=== PATIENT | female | born 1985 | race Caucasian/White ===

== ENCOUNTER 2017-10-25 15:44 | Emergency (ER) | payer BC ==
[2017-10-25 16:03] VITALS: BP 102/67
--- NOTE | 2017-10-25 16:44 | UC ---
Luigi Leija Natalie, scribed for Colin Horner MD on 10/25/17 at 1621 . Respiratory Complaint HPI - HPI Summary HPI Summary: The patient is a 32 y/o F presenting to [facility] c/o possible sinus infection for the last week with symptoms of sinus pressure, runny nose, and post nasal drip. The pain is rated 5/10 in severity. Patient additionally c/o chills and teeth starting to hurt today. She denies fevers. She is leaving town tomorrow and is worried about flying with an infection. PMHx of allergic rhinitis for which she takes multiple medications for. - History of Current Complaint Chief Complaint: UCRespiratory Stated Complaint: SINUS COMPLAINT Time Seen by Provider: 10/25/17 16:07 Hx Obtained From: Patient Hx Last Menstrual Period: 10 days ago Onset/Duration: Gradual Onset, Lasting Days - starting 1 week ago, Still Present Severity Initially: Moderate Severity Currently: Moderate Pain Intensity: 5 Pain Scale Used: 0-10 Numeric Associated Signs And Symptoms: Positive: Sinus Discomfort - Allergies/Home Medications Allergies/Adverse Reactions: Allergies Allergy/AdvReac Type Severity Reaction Status Date / Time acetaminophen [From Vicodin] Allergy Tachycardia Verified 10/25/17 16:03 azithromycin [From Zithromax] Allergy Rash Verified 10/25/17 16:03 hydrocodone [From Vicodin] Allergy Tachycardia Verified 10/25/17 16:03 Penicillins Allergy Rash Verified 10/25/17 16:03 Home Medications: Home Medications Albuterol HFA INHALER* [Ventolin HFA Inhaler*] 1 puff INH Q4H PRN 10/25/17 [ History Confirmed 10/25/17] Beclomethasone Dipropionate [Qnasl] 80 mcg NA 10/25/17 [History] Fluticasone/Vilanterol MDI(NF) [Breo Ellipta MDI 100/25(NF)] 1 puff INH DAILY [History Confirmed 10/25/17] LevoCETirizine TAB (NF) [Xyzal TAB (NF)] 5 mg PO DAILY 10/25/17 [History Confirmed 10/25/17] PMH/Surg Hx/FS Hx/Imm Hx Cardiovascular History: Other - NEGATIVE: hypertension Other Cardiovascular History: negative for HTN Respiratory History: Other - allergic rhinitis Other Respiratory History: allergic rhinitis - Surgical History Surgical History: Yes Surgery Procedure, Year, and Place: SINUS 1998 - sinus cyst removal. wisdom teeth removed x4 - Family History Known Family History: Negative: Hypertension - Social History Alcohol Use: Weekly Substance Use Type: None Smoking Status (MU): Never Smoked Tobacco Review of Systems Constitutional: Chills, Other - NEGATIVE: fevers ENT: Dental Pain - tooth ache, Nasal Discharge - runny nose, post nasal drip, Sinus Pain/Tenderness - pressure Is Patient Immunocompromised?: Yes All Other Systems Reviewed And Are Negative: Yes Physical Exam - Summary Physical Exam Summary: VITAL SIGNS: Reviewed. GENERAL: Patient is a well-developed and nourished female who is lying comfortable in the stretcher. Patient is not in any acute respiratory distress. HEAD AND FACE: Normocephalic. Erythema in nasal mucosas. Tenderness in sinus areas. EYES: PERRLA, EOMI x 2. EARS: Hearing grossly intact. MOUTH: Erythema in throat. NECK: Supple, trachea is midline, no adenopathy, no JVD, no carotid bruit. CHEST: Symmetric, no tenderness at palpation LUNGS: Clear to auscultation bilaterally. No wheezing or crackles. CVS: Regular rate and rhythm, S1 and S2 present, no murmurs or gallops appreciated. ABDOMEN: Soft, non-tender. Bowel sounds are normal. No abdominal abnormal pulsations. EXTREMITIES: Full ROM in all major joints, no edema, no cyanosis or clubbing. NEURO: Alert and oriented x 3. No acute neurological deficits. Speech is normal and follows commands. SKIN: Dry and warm Triage Information Reviewed: Yes Vital Signs: Initial Vital Signs Temp 98.1 F 10/25/17 15:59 Pulse 64 10/25/17 15:59 Resp 18 10/25/17 15:59 BP 102/67 10/25/17 15:59 Pulse Ox 100 10/25/17 15:59 Vital Signs Reviewed: Yes UC Diagnostic Evaluation - Laboratory O2 Sat by Pulse Oximetry: 100 Respiratory Course/Dx - Course Course Of Treatment: The patient is a 32 y/o F presenting to [facility] c/o possible sinus infection for the last week with symptoms of sinus pressure, runny nose, and post nasal drip. The pain is rated 5/10 in severity. Patient additionally c/ o chills and teeth starting to hurt today. She denies fevers. She is leaving town tomorrow and is worried about flying with an infection. PMHx of allergic rhinitis for which she takes multiple medications for. The pt is hemodynamically stable, alert and oriented x3. The patient will be given Levaquin because she is allergic to Penicillins and Zithromax. She will be discharged home with prescription. I discussed all the findings and test results with the patient. Patient was instructed to return to the urgent care or go to ER immediately if any of the symptoms return or worsens. Plan of care was discussed with the patient, and patient understands and agrees. All questions were answered to patient satisfaction. There were no further complaints or concerns. - Differential Dx/Diagnosis Provider Diagnoses: Sinusitis Discharge - Sign-Out/Discharge Documenting (check all that apply): Discharge/Admit/Transfer - Discharge Plan Condition: Stable Disposition: HOME Prescriptions: Levofloxacin TAB* [Levaquin TAB*] 500 mg PO DAILY #7 tab Patient Education Materials: Sinusitis (ED), Allergies (ED) Referrals: Nura Dolan MD [Primary Care Provider] - Additional Instructions: RETURN TO URGENT CARE OR THE ED FOR ANY WORSENING OR NEW SYMPTOMS. - Billing Disposition and Condition Condition: STABLE Disposition: HOME The documentation as recorded by the Luigi pineda Natalie accurately reflects the service I personally performed and the decisions made by me, Colin Horner MD.
== END 2017-10-25 16:20 | disposition home or self-care (01) ==
LOC: UCEAST 15:44
DX: J32.9 Chronic sinusitis, unspecified (principal); Z88.6 Allergy status to analgesic agent; Z88.1 Allergy status to other antibiotic agents; Z88.5 Allergy status to narcotic agent; Z88.0 Allergy status to penicillin
CPT/HCPCS: 99212; G0463

== ENCOUNTER 2019-10-13 18:58 | Inpatient (IN) ==
[~2019-10-13 18:58] MED LIST: ceFAZolin VIAL(*) 1 GM in NS 0.9% 50 ML 50 ML IVPB SCH
[2019-10-13] MEDS ORDERED: Lactated Ringers 1000 ml BAG 1,000 ML IV ONE (19:19)
[2019-10-13 19:42] LABS: Urine Benzodiazepine Screen None Detected (None Detect); Urine Opiates Screen None Detected (None Detect)
[2019-10-13] MEDS ORDERED: ceFAZolin 2 GM PREMIX in ORs 2 GM/50 ML BAG IVPB ONE (20:00)
[2019-10-13] MEDS ORDERED: Lactated Ringers 1000 ml BAG 1,000 ML IV SCH (20:00)
[2019-10-13 20:02] LABS: ABS Basophils 0.1 10^3/ul (0-0.2); ABS Eosinophils 0.1 10^3/ul (0-0.6); ABS Lymphocytes 3.2 10^3/ul (1.0-4.8); ABS Monocytes 0.6 10^3/ul (0-0.8); Eosinophil % 1.1 %; Hematocrit 35 % (35-47); Hemoglobin 12.3 g/dL (12.0-16.0); Lymphocyte % 23.4 %; Mean Corpuscular HGB Conc 35 g/dL (31-36); Mean Corpuscular Hemoglobin 30 pg (27-31); Mean Corpuscular Volume 85 fL (80-97); Mean Platelet Volume 10.5 fL (7.4-10.4); Platelet Count 153 10^3/uL (150-450); Red Blood Count 4.11 10^6 /uL (3.70-4.87); Red Cell Distribution Width 13 % (10-15); White Blood Count 13.7 10^3/uL (3.5-10.8)
[2019-10-13 22:47] LABS: Urine Benzodiazepine Screen None Detected (None Detect); Urine Opiates Screen None Detected (None Detect)
[2019-10-14] MEDS ORDERED: ceFAZolin VIAL(*) 1 GM in NS 0.9% 50 ML 50 ML IVPB SCH (04:00)
[2019-10-14] MEDS: Budesonide Flexhaler 180 (NF) 180 MCG/ACT MDI INH SCH (09:30)
[2019-10-14] MEDS ORDERED: Oxytocin in LR 20 UNITS/1,000 ML BAG IVPB ONE (09:39)
[2019-10-14] MEDS ORDERED: Glycerin ADULT 2.4 gm SUPP PR PRN (10:06)
[2019-10-14] MEDS ORDERED: Witch Hazel PAD JAR TOPICAL PRN (10:06)
[2019-10-14] MEDS ORDERED: Dibucaine 1% OINT 28.35 GM TUBE PR PRN (10:06)
[2019-10-14] MEDS ORDERED: Oxytocin in LR 20 UNITS/1,000 ML BAG IVPB SCH (11:00)
[2019-10-14] MEDS ORDERED: Lactated Ringers 1000 ml BAG 1,000 ML IV SCH (11:00)
[2019-10-14] MEDS ORDERED: Lidocaine 1% VIAL 10 MG/ML VIAL ONE (11:10)
[2019-10-15 06:13] LABS: ABS Eosinophils 0.1 10^3/ul (0-0.6); ABS Lymphocytes 2.4 10^3/ul (1.0-4.8); ABS Monocytes 0.7 10^3/ul (0-0.8); Hematocrit 31 % (35-47); Hemoglobin 10.9 g/dL (12.0-16.0); Lymphocyte % 20.9 %; Mean Corpuscular HGB Conc 35 g/dL (31-36); Mean Corpuscular Hemoglobin 30 pg (27-31); Mean Corpuscular Volume 85 fL (80-97); Mean Platelet Volume 10.3 fL (7.4-10.4); Platelet Count 124 10^3/uL (150-450); Red Blood Count 3.68 10^6 /uL (3.70-4.87); Red Cell Distribution Width 13 % (10-15); White Blood Count 11.7 10^3/uL (3.5-10.8)
[2019-10-15] MEDS: Budesonide Flexhaler 180 (NF) 180 MCG/ACT MDI INH SCH (10:42)
[2019-10-15] MEDS ORDERED: Magnesium Sulfate CRYSTAL 454 GM BOX TOPICAL ONE (11:04)
[2019-10-16] MEDS: Budesonide Flexhaler 180 (NF) 180 MCG/ACT MDI INH SCH (07:28)
[2019-10-16 08:37] VITALS: BP 121/63
== END 2019-10-16 13:42 | disposition home or self-care (01) | DRG 807 ==
LOC: MCHOB 18:58
PROVIDERS: ADMIT Midwife; ATTEND Midwife